=== PATIENT | male | born 1975 | race Caucasian/White ===

== ENCOUNTER 2021-03-21 12:45 | Outpatient (REF) | payer SELFPAY ==
[2021-03-21 15:37] LABS: Binax Internal Control QC Valid; Binax Now Covid-19 Ag Positive (Negative)
== END 2021-03-21 12:46 | disposition home or self-care (01) ==
LOC: HO.LAB 12:45
PROVIDERS: Visit Provider Internal Medicine
DX: Z20.822 Contact with and (suspected) exposure to COVID-19 (principal)
CPT/HCPCS: 36415; C9803